=== PATIENT | male | born 1965 | race Caucasian/White ===

== ENCOUNTER 2018-07-16 11:41 | Inpatient (IN) | payer MEDICAID ==
[~2018-07-16] VITALS: Ht 170.2 cm; Wt 93.0 kg
[2018-07-16] MEDS ORDERED: SODIUM CHLORIDE 0.9% 1,000 ML IV ONE (11:53)
[2018-07-16] MEDS ORDERED: LABETALOL 5MG/ML SYR 20 MG/4 ML SYRINGE IV ONE (12:00)
[2018-07-16 12:11] LABS: HEMATOCRIT. 43.7 % (42.0-52.0); MEAN CORPUSCULAR HEMOGLOBIN 32.8 pg (28.0-32.0); MEAN CORPUSCULAR VOLUME 95.8 fL (80.0-94.0); MEAN PLATELET VOLUME 7.3 fl (7.4-10.4); PLATELET 132 x1000/uL (130-400); RED BLOOD CELL COUNT 4.57 mill/uL (4.7-6.1); RED CELL DISTRIBUTION WIDTH 14.4 % (11.6-14.6)
[2018-07-16] MEDS ORDERED: LORAZEPAM 2MG/ML CPJ IV ONE ×2 (12:15→15:00)
[2018-07-16 12:16] LABS: CHLORIDE 98 mEq/L (98-107)
[2018-07-16 12:20] LABS: ETHANOL BLOOD 74 mg/dL
[2018-07-16 12:23] LABS: LDL CHOLESTEROL 85 mg/dL (5-100)
[2018-07-16] MEDS ORDERED: IOHEXOL-350 100 ML BOTTLE ONE (12:24)
[2018-07-16 12:31] LABS: PARTIAL THROMBOPLASTIN TIME 27.6 sec (23.4-31.0); PROTHROMBIN TIME 10.5 sec (9.1-11.1)
[2018-07-16 12:42] LABS: PLATELET ESTIMATE NORMAL
[2018-07-16 13:07] LABS: BG BASE EXCESS -10.4 mmol/L (-2.0-2.0); BG CARBOXYHEMOGLOBIN 0.8 % (0.5-1.5); BG DEOXYHEMOGLOBIN 3.7 % (0.0-5.0); BG HCO3 ACT 12.4 mmol/L (22.0-26.0); BG METHEMOGLOBIN 0.3 % (0.0-1.5); BG OXYGEN SATURATION 96.3 % (92.0-98.5); BG OXYHEMOGLOBIN 95.2 % (94.0-97.0); BG PCO2 21.7 mmHg (35.0-45.0); BG PH 7.375 (7.350-7.450); BG PO2 95.9 mmHg (75.0-100.0); BG SAMPLE SITE RIGHT RADIAL; BG VENT MODE ROOM AIR
[2018-07-16] MEDS ORDERED: SODIUM CHLORIDE 0.9% 1000ML BAG (SEPSIS BOLUS) IV ONE (13:30)
[2018-07-16] MEDS ORDERED: LEVOFLOXACIN 750MG PREMIX 150 ML IV ONE (13:30)
[2018-07-16] MEDS ORDERED: ASPIRIN 325MG EC TABLET PO ONE (13:30)
[2018-07-16 14:33] LABS: CLARITY URINE CLEAR (CLEAR); COLOR URINE YELLOW (YELLOW); KETONES URINE TRACE (NEGATIVE); LEUKOCYTE ESTERASE URINE NEGATIVE (NEGATIVE); NITRITE URINE NEGATIVE (NEGATIVE); OCCULT BLOOD URINE 3+ (NEGATIVE); PROTEIN URINE 2+ (NEGATIVE); UROBILINOGEN URINE 0.2 E.U./dL (0.2-1.0)
[2018-07-16 14:47] LABS: *AMPHETAMINES SCREEN URINE NEGATIVE (NEGATIVE); CANNABINOID URINE SCREEN NEGATIVE (NEGATIVE); PHENCYCLIDINE URINE SCREEN NEGATIVE (NEGATIVE)
[2018-07-16 14:48] LABS: *BARBITURATES SCREEN URINE NEGATIVE (NEGATIVE); *BENZODIAZEPINES SCREEN URINE NEGATIVE (NEGATIVE); *COCAINE SCREEN URINE NEGATIVE (NEGATIVE); METHADONE URINE SCREEN NEGATIVE (NEGATIVE); OPIATES URINE SCREEN NEGATIVE (NEGATIVE)
[2018-07-16] MEDS ORDERED: HYDROMORPHONE HCL/PF 2MG/ML CPJ IV PRN (16:30)
[2018-07-16] MEDS ORDERED: ONDANSETRON HCL 4MG/2ML INJ IV PRN (16:30)
[2018-07-16] MEDS ORDERED: MAGNESIUM/ALUMINUM HYDROXIDE/SIMETHICONE 30ML UDC PO PRN (16:30)
[2018-07-16] MEDS ORDERED: CLONIDINE 0.1MG TABLET PO PRN (16:30)
[2018-07-16] MEDS ORDERED: IPRATROPIUM/ALBUTEROL 0.5-3(2.5)MG/3ML NEB INH PRN (16:30)
[2018-07-16] MEDS ORDERED: HYDROCODONE/ACETAMINOPHEN 10/325MG TABLET PO PRN (16:30)
[2018-07-16] MEDS ORDERED: GUAIFENESIN 200MG/10ML SUGAR FREE UDC PO PRN (16:30)
[2018-07-16] MEDS ORDERED: ACETAMINOPHEN 325MG TABLET PO PRN (16:30)
[2018-07-16] MEDS ORDERED: DOCUSATE SODIUM 100MG CAPSULE PO PRN (16:30)
[2018-07-16] MEDS ORDERED: NA PHOS,M-B/NA PHOS,DI-BA ENEMA 118ML PR PRN (16:30)
[2018-07-16] MEDS ORDERED: HYDRALAZINE 20MG/ML VIAL IV PRN (16:30)
[2018-07-16] MEDS ORDERED: DIPHENHYDRAMINE 50MG/ML VIAL IV PRN (16:30)
[2018-07-16] MEDS: LORAZEPAM 2MG/ML CPJ IV PRN (20:06)
[2018-07-16 22:45] VITALS: BP 157/79
[2018-07-16] MEDS: ENOXAPARIN 30MG/0.3ML SYR SUBCUT SCH (23:30)
[2018-07-16] MEDS ORDERED: MVI, ADULT NO.1 10 ML, FOLIC ACID 1 MG, THIAMINE HCL 100 MG in SODIUM CHLORIDE 0.9% 1,0... IV NR ×4 (23:30)
[2018-07-16] MEDS: SODIUM CHLORIDE 0.9% INJ 3ML FLUSH IVF SCH (23:31)
[2018-07-17] MEDS: LORAZEPAM 2MG/ML CPJ IV PRN ×3 (00:27→14:57)
[2018-07-17 00:35] LABS: CREATINE KINASE MB FRACTION 27.7 ng/mL (0.5-3.6)
[2018-07-17] MEDS ORDERED: LATUDA PO (01:00)
[2018-07-17] MEDS ORDERED: CITA40TA22 PO (01:00)
[2018-07-17] MEDS ORDERED: QUET300T2 PO (01:00)
[2018-07-17 04:00] VITALS: BP 133/91
[2018-07-17] MEDS: SODIUM CHLORIDE 0.45% 1,000 ML IV SCH ×2 (05:33→08:31)
[2018-07-17 08:00] VITALS: BP 144/82
[2018-07-17 08:04] LABS: BASOPHILS % 0.2 % (0.0-2.0); EOSINOPHILS % 0.1 % (0.0-5.0); HEMATOCRIT. 39.5 % (42.0-52.0); HEMOGLOBIN. 14.1 g/dL (14.0-18.0); MEAN CORPUSCULAR HEMOGLOBIN 33.2 pg (28.0-32.0); MEAN CORPUSCULAR VOLUME 93.3 fL (80.0-94.0); MEAN PLATELET VOLUME 7.8 fl (7.4-10.4); MONOCYTES % 7.1 % (2.0-8.0); NEUTROPHILS % 79.6 % (40.0-76.0); PLATELET 107 x1000/uL (130-400); RED BLOOD CELL COUNT 4.23 mill/uL (4.7-6.1); RED CELL DISTRIBUTION WIDTH 14.1 % (11.6-14.6)
[2018-07-17 08:13] LABS: CHLORIDE 102 mEq/L (98-107)
[2018-07-17 08:21] LABS: CREATINE KINASE MB FRACTION 30.3 ng/mL (0.5-3.6)
[2018-07-17 08:25] LABS: LDL CHOLESTEROL 75 mg/dL (5-100)
[2018-07-17 08:26] LABS: T4 FREE 0.73 ng/dL (0.76-1.46)
[2018-07-17 08:27] LABS: HDL CHOLESTEROL 64 mg/dL (40-59)
[2018-07-17] MEDS: ENOXAPARIN 30MG/0.3ML SYR SUBCUT SCH (08:30)
[2018-07-17] MEDS ORDERED: ASPIRIN 81MG EC TABLET PO SCH (09:00)
[2018-07-17 09:05] LABS: CREATINE KINASE 13019 IU/L (39-308)
[2018-07-17] MEDS ORDERED: SODIUM BICARBONATE 100 MEQ in SODIUM CHLORIDE 0.45% 1,000 ML IV SCH (10:30)
[2018-07-17 12:00] VITALS: BP 143/89
[2018-07-17] MEDS: SODIUM CHLORIDE 0.9% INJ 3ML FLUSH IVF SCH (14:00)
[2018-07-17] MEDS ORDERED: LEVOFLOXACIN 500MG PREMIX 100 ML IV SCH (14:00)
[2018-07-17 16:00] VITALS: BP 138/80
[2018-07-17] MEDS ORDERED: MEDICATION NOT ON FORMULARY EA (Quetiapine Fumarate (Seroquel) 300 MG) PO SCH (16:00)
[2018-07-17] MEDS ORDERED: CITALOPRAM HYDROBROMIDE 40 MG PO SCH (16:00)
[2018-07-17] MEDS ORDERED: QUETIAPINE FUMARATE 100MG TABLET PO SCH (16:00)
[2018-07-17] MEDS ORDERED: CITALOPRAM HYDROBROMIDE 20MG TABLET PO SCH (16:00)
[2018-07-17] MEDS ORDERED: HALOPERIDOL 5MG TABLET PO PRN (16:15)
[2018-07-17] MEDS ORDERED: THIAMINE HCL 100MG TABLET PO SCH (17:00)
== END 2018-07-17 16:55 | disposition left against medical advice (07) | DRG 351 ==
LOC: ER 11:41 → 6WST 13:54 → ENRESERV 20:33
PROVIDERS: ADMIT Internal Medicine; ATTEND Internal Medicine
DX: T79.6XXA Traumatic ischemia of muscle, initial encounter (principal); N17.0 Acute kidney failure with tubular necrosis; E87.2 Acidosis; F05 Delirium due to known physiological condition; F10.20 Alcohol dependence, uncomplicated; R91.8 Other nonspecific abnormal finding of lung field; R74.0 Nonspecific elevation of levels of transaminase and lactic acid dehydrogenase [LDH]; E87.6 Hypokalemia; Z53.21 Procedure and treatment not carried out due to patient leaving prior to being seen by health care provider; W18.39XA Other fall on same level, initial encounter; F20.9 Schizophrenia, unspecified; F31.9 Bipolar disorder, unspecified; I10 Essential (primary) hypertension; Y90.3 Blood alcohol level of 60-79 mg/100 ml; Z72.0 Tobacco use; Z78.1 Physical restraint status; Z79.899 Other long term (current) drug therapy
CPT/HCPCS: 36415; 36600; 70496; 70498; 71045; 80061; 80305; 80320; 82375; 82550; 82553; 82805; 82962; 83036; 83605; 83721; 84439; 84443; 84484; 93005; 93306; 96365; 96366; 96375; 97162; 97166; 99291; A6261; J1630; J1650; J1956; J2060; J3411; J3490; J7030; Q9967; G0480

== ENCOUNTER 2019-12-29 14:41 | Emergency (ER) | payer MEDICAID ==
[~2019-12-29] VITALS: Ht 172.7 cm; Wt 95.0 kg
[~2019-12-29 14:41] MED LIST: CITA40TA22 PO; LATUDA PO; QUET300T2 PO
[2019-12-29] MEDS ORDERED: MORPHINE SULFATE 4 MG/ML CPJ (NOT FOR IM USE) IV STA (15:32)
[2019-12-29] MEDS ORDERED: SODIUM CHLORIDE 0.9% 1,000 ML IV ONE (15:32)
[2019-12-29] MEDS ORDERED: ONDANSETRON HCL 4MG/2ML INJ IV STA (15:32)
[2019-12-29] MEDS ORDERED: VANCOMYCIN 1 G PREMIX 200 ML IV ONE (15:45)
[2019-12-29] MEDS ORDERED: TETANUS, DIPHTHERIA, PERTUSSIS VAC/PF 0.5ML (>7YR OLD) IM ONE (15:45)
[2019-12-29] MEDS ORDERED: PIPERACILLIN/TAZ 3.375G PREMIX 50 ML IV ONE (15:45)
[2019-12-29 15:53] LABS: CHLORIDE 104 mEq/L (98-107)
[2019-12-29 15:54] LABS: BASOPHILS % 0.8 % (0.0-2.0); EOSINOPHILS % 0.1 % (0.0-5.0); HEMATOCRIT. 38.3 % (42.0-52.0); HEMOGLOBIN. 13.6 g/dL (14.0-18.0); LYMPHOCYTES % 21.4 % (20.0-50.0); MEAN CORPUSCULAR VOLUME 98.6 fL (80.0-94.0); MEAN PLATELET VOLUME 7.3 fl (7.4-10.4); MONOCYTES % 13.7 % (2.0-8.0); PLATELET 129 x1000/uL (130-400); RED BLOOD CELL COUNT 3.89 mill/uL (4.7-6.1); RED CELL DISTRIBUTION WIDTH 13.9 % (11.6-14.6)
[2019-12-29 16:02] LABS: INR 1.1; PROTHROMBIN TIME 11.4 sec (9.6-11.0)
[2019-12-29] MEDS ORDERED: MORPHINE SULFATE 4 MG/ML CPJ (NOT FOR IM USE) IV ONE ×2 (19:15→23:30)
[2019-12-29] MEDS ORDERED: ONDANSETRON HCL 4MG/2ML INJ IV ONE (23:30)
[2019-12-30] MEDS ORDERED: CHLORDIAZEPOXIDE 25MG CAPSULE PO ONE ×2 (02:45→13:15)
[2019-12-30] MEDS ORDERED: ONDANSETRON HCL 4MG/2ML INJ IV NR (02:45)
[2019-12-30] MEDS ORDERED: CHLORDIAZEPOXIDE 25MG CAPSULE PO NR (03:00)
[2019-12-30] MEDS ORDERED: MORPHINE SULFATE 4 MG/ML CPJ (NOT FOR IM USE) IV NR (04:15)
[2019-12-30] MEDS ORDERED: LORAZEPAM 1MG TABLET PO ONE (06:00)
[2019-12-30] MEDS ORDERED: MORPHINE SULFATE 4 MG/ML CPJ (NOT FOR IM USE) IV ONE (09:30)
[2019-12-30] MEDS ORDERED: OXYCODONE HCL/ACETAMINOPHEN 5/325MG TABLET PO ONE (14:30)
[2019-12-30 15:51] VITALS: BP 159/88
== END 2019-12-30 16:15 | disposition short-term general hospital (02) ==
LOC: ER 15:00
DX: M65.88 Other synovitis and tenosynovitis, other site (principal); I10 Essential (primary) hypertension
CPT/HCPCS: 36415; 71045; 73130; 80053; 82962; 83605; 85025; 85610; 85730; 87040; 90471; 90715; 93005; 96365; 96366; 96368; 96375; 96376; 99285; J2270; J2405; J2543; J3370; J7030

== ENCOUNTER 2021-09-11 10:20 | Emergency (ER) | payer MEDICAID, OTHER ==
[~2021-09-11] VITALS: Ht 170.2 cm; Wt 84.0 kg
[2021-09-11 11:38] VITALS: BP 137/82
== END 2021-09-11 11:39 | disposition home or self-care (01) ==
LOC: ER 10:20
DX: Z11.1 Encounter for screening for respiratory tuberculosis (principal)
CPT/HCPCS: 71045; 99283

== ENCOUNTER 2022-06-17 13:42 | Emergency (ER) | payer MEDICAID, OTHER ==
[~2022-06-17] VITALS: Ht 167.6 cm; Wt 68.0 kg
[2022-06-17] MEDS ORDERED: GABAPENTIN SOLN 300MG/6ML UDC PO ONE (20:00)
[2022-06-18] MEDS ORDERED: GABA-529 MT (02:17)
[2022-06-18] MEDS ORDERED: GABAPENTIN SOLN 300MG/6ML UDC PO ONE (12:30)
[2022-06-18] MEDS: FLUOXETINE HCL 10 MG CAPSULE PO SCH (12:38)
[2022-06-18] MEDS: QUETIAPINE FUMARATE 50MG TABLET PO SCH ×2 (12:38→21:54)
[2022-06-18 16:05] LABS: BASOPHILS % 0.6 % (0.0-2.0); EOSINOPHILS % 0.4 % (0.0-5.0); HEMATOCRIT. 34.6 % (42.0-52.0); HEMOGLOBIN. 12.1 g/dL (14.0-18.0); LYMPHOCYTES % 33.2 % (20.0-50.0); MEAN CORPUSCULAR HEMOGLOBIN 34.9 pg (28.0-32.0); MEAN CORPUSCULAR VOLUME 100.1 fL (80.0-94.0); MONOCYTES % 11.4 % (2.0-8.0); NEUTROPHILS % 54.4 % (40.0-76.0); PLATELET 160 x1000/uL (130-400); RED BLOOD CELL COUNT 3.46 mill/uL (4.7-6.1); RED CELL DISTRIBUTION WIDTH 15.3 % (11.6-14.6)
[2022-06-18 16:17] LABS: CHLORIDE 106 mEq/L (98-107)
[2022-06-18 16:31] LABS: ETHANOL BLOOD < 10 mg/dL
[2022-06-18 17:24] LABS: *AMPHETAMINES SCREEN URINE NEGATIVE (NEGATIVE); *BARBITURATES SCREEN URINE NEGATIVE (NEGATIVE); *BENZODIAZEPINES SCREEN URINE NEGATIVE (NEGATIVE); *COCAINE SCREEN URINE NEGATIVE (NEGATIVE); CANNABINOID URINE SCREEN NEGATIVE (NEGATIVE); METHADONE URINE SCREEN NEGATIVE (NEGATIVE); OPIATES URINE SCREEN NEGATIVE (NEGATIVE); PHENCYCLIDINE URINE SCREEN NEGATIVE (NEGATIVE)
[2022-06-18] MEDS ORDERED: GABAPENTIN 300MG CAPSULE PO STA (21:46)
[2022-06-19] MEDS: FLUOXETINE HCL 10 MG CAPSULE PO SCH (09:00)
[2022-06-19] MEDS: QUETIAPINE FUMARATE 50MG TABLET PO SCH ×2 (09:00→22:24)
[2022-06-19] MEDS ORDERED: GABAPENTIN 300MG CAPSULE PO ONE ×2 (10:15→21:45)
[2022-06-19] MEDS ORDERED: LORAZEPAM 1MG TABLET PO ONE (10:45)
[2022-06-19 21:24] LABS: CLARITY URINE CLEAR (CLEAR); COLOR URINE YELLOW (YELLOW); KETONES URINE TRACE (NEGATIVE); LEUKOCYTE ESTERASE URINE NEGATIVE (NEGATIVE); NITRITE URINE NEGATIVE (NEGATIVE); OCCULT BLOOD URINE NEGATIVE (NEGATIVE); PH URINE 7.5 (4.5-8.0); PROTEIN URINE NEGATIVE (NEGATIVE); SPECIFIC GRAVITY URINE 1.019 (1.005-1.030)
[2022-06-20] MEDS ORDERED: LORAZEPAM 1MG TABLET PO NR (10:15)
[2022-06-20] MEDS: FLUOXETINE HCL 10 MG CAPSULE PO SCH (10:29)
[2022-06-20] MEDS ORDERED: GABAPENTIN 300MG CAPSULE PO ONE (15:45)
[2022-06-20] MEDS ORDERED: LORAZEPAM 1MG TABLET PO ONE (15:45)
[2022-06-20 16:37] VITALS: BP 166/81
[2022-06-20] MEDS ORDERED: AMLODIPINE 5MG TABLET PO ONE (17:00)
[2022-06-20] MEDS ORDERED: QUETIAPINE FUMARATE 50MG TABLET PO SCH (21:00)
[2022-06-20] MEDS ORDERED: GABAPENTIN 300MG CAPSULE PO SCH (22:00)
== END 2022-06-20 17:38 | disposition home or self-care (01) ==
LOC: ER 13:42
DX: F28 Other psychotic disorder not due to a substance or known physiological condition (principal); F32.A Depression, unspecified; R45.851 Suicidal ideations; I10 Essential (primary) hypertension; G62.9 Polyneuropathy, unspecified; Z20.822 Contact with and (suspected) exposure to COVID-19; Z75.1 Person awaiting admission to adequate facility elsewhere; Z59.00 Homelessness unspecified
CPT/HCPCS: 80053; 80305; 80320; 81001; 85025; 87426; 99284; C9803; Z7610; G0480

== ENCOUNTER 2022-07-23 18:27 | Emergency (ER) | payer MEDICAID, OTHER ==
[~2022-07-23] VITALS: Ht 170.2 cm; Wt 99.8 kg
[~2022-07-23 18:27] MED LIST changes: +GABA-529 MT
[2022-07-23 20:09] LABS: BASOPHILS % 0.7 % (0.0-2.0); EOSINOPHILS % 0.5 % (0.0-5.0); HEMOGLOBIN. 15.2 g/dL (14.0-18.0); LYMPHOCYTES % 27.1 % (20.0-50.0); MEAN CORPUSCULAR VOLUME 96.3 fL (80.0-94.0); MEAN PLATELET VOLUME 6.6 fl (7.4-10.4); MONOCYTES % 12.6 % (2.0-8.0); NEUTROPHILS % 59.1 % (40.0-76.0); PLATELET 210 x1000/uL (130-400); RED BLOOD CELL COUNT 4.47 mill/uL (4.7-6.1); RED CELL DISTRIBUTION WIDTH 14.6 % (11.6-14.6)
[2022-07-23 20:18] LABS: CHLORIDE 96 mEq/L (98-107)
[2022-07-23 20:22] LABS: ETHANOL BLOOD 92 mg/dL
[2022-07-23] MEDS ORDERED: CLONIDINE 0.1MG TABLET PO ONE (22:45)
[2022-07-24] MEDS ORDERED: LORAZEPAM 1MG TABLET PO ONE (03:15)
[2022-07-24 04:23] LABS: *AMPHETAMINES SCREEN URINE PRESUMTIVE POSITIVE (NEGATIVE); *BARBITURATES SCREEN URINE NEGATIVE (NEGATIVE); *BENZODIAZEPINES SCREEN URINE NEGATIVE (NEGATIVE); *COCAINE SCREEN URINE NEGATIVE (NEGATIVE); CANNABINOID URINE SCREEN PRESUMTIVE POSITIVE (NEGATIVE); METHADONE URINE SCREEN NEGATIVE (NEGATIVE); OPIATES URINE SCREEN NEGATIVE (NEGATIVE); PHENCYCLIDINE URINE SCREEN NEGATIVE (NEGATIVE)
[2022-07-24] MEDS ORDERED: GABAPENTIN 100MG CAPSULE PO SCH (06:00)
[2022-07-24 11:52] VITALS: BP 128/63
== END 2022-07-24 11:53 | disposition home or self-care (01) ==
LOC: ER 18:27
DX: R45.851 Suicidal ideations (principal); F32.9 Major depressive disorder, single episode, unspecified; F20.9 Schizophrenia, unspecified; I10 Essential (primary) hypertension; F10.129 Alcohol abuse with intoxication, unspecified; Y90.4 Blood alcohol level of 80-99 mg/100 ml; Z59.00 Homelessness unspecified; Z91.14 Patient's other noncompliance with medication regimen; Z20.822 Contact with and (suspected) exposure to COVID-19
CPT/HCPCS: 36415; 80048; 80305; 80307; 80320; 80329; 85025; 87426; 99285; C9803; G0480